=== PATIENT | female | born 1985 | race Hispanic/Latino ===

== ENCOUNTER 2017-01-14 14:19 | Emergency (ER) | payer OTHER ==
[~2017-01-14] VITALS: Ht 157.5 cm; Wt 67.6 kg
--- NOTE | 2017-01-14 14:44 | ED GENERAL ADULT ---
History of Present Illness General Chief Complaint: General Adult Stated Complaint: BLEEDING FROM INCISION SITE S/P Source: patient Exam Limitations: no limitations Vital Signs & Intake/Output Vital Signs & Intake/Output Vital Signs Date Time Temp Pulse Resp B/P B/P Pulse O2 O2 Flow FiO2 Mean Ox Delivery Rate 01/14 1648 96.8 63 16 119/62 98 Room Air 01/14 1555 55 105/62 01/14 1531 Room Air 01/14 1433 96.8 66 18 105/66 98 Room Air Allergies Coded Allergies: No Known Drug Allergies (Intermediate, NONE 01/14/17) Reconcile Medications Docusate Sodium 100 MG CAPSULE 1 CAP PO BID STOOL SOFTNER (Reported) Ferrous Sulfate 325 MG (65 MG IRON) TABLET 1 TAB PO BID POST PARDUM SUPPLEMENT (Reported) Vit Comb.10/Iron/FA (Vitafol-Ob Caplet) 65 MG-1 MG TABLET 1 TAB PO DAILY POST VITAMIN (Reported) Terbinafine HCl 250 MG TABLET 1 TAB PO DAILY VAGINAL YEAST INFECTION ( Reported) Triage Note: C/O HEAVY VAIGNAL BLEEDING WITH CRAMPING SINCE YESTERDAY. S/P C SECTION 2 MONTHS AGO WITH TUBAL LIGATION. ALSO C/O SLIGHT BLEEDING FROM ABODMINAL INCISION. Triage Nurses Notes Reviewed? yes : No Patient currently breastfeeds: No HPI: 31 yo F presenting with incision site pain/drainage, vaginal bleeding. Patient had [address] Grimaldo ([facility]), 2 weeks ago developed pain at lower incision site, lasted for 4 days, evaluated by PMD who considered getting soft tissue ultrasound, but pain resolved and no further evaluation was undertaken, today patient developed mild serosanguineous drainage from lower incision site, thinks she may have irritated the area with the button on her pants. Patient endorses vaginal bleeding since yesterday, dark maroon blood without clots, states that she is due for her menstrual period and this is the first since her , going through a pad every 1-2 hours. Associated mild intermittent crampy lower abdominal pain, absent currently. Denies chest pain, shortness of breath, lightheadedness, syncope. (TABITHA ALARCON,KEVIN) Past History Travel History Traveled to [place] past 21 day No Medical History Any Pertinent Medical History? none Neurological: NONE EENT: NONE Cardiovascular: NONE Respiratory: NONE Gastrointestinal: NONE Hepatic: NONE Renal: NONE Musculoskeletal: NONE Psychiatric: NONE Endocrine: NONE Surgical History Surgical History: none Psychosocial History What is your primary language Malagasy Tobacco Use: Never used ETOH Use: denies use Family History Hx Contributory? No (KEVIN LU MD) Review of Systems Review of Systems Constitutional: Reports: no symptoms. EENTM: Reports: no symptoms. Respiratory: Reports: no symptoms. Cardiovascular: Reports: no symptoms. GI: Reports: no symptoms. Genitourinary: Reports: see HPI. Musculoskeletal: Reports: no symptoms. Skin: Reports: see HPI. Neurological/Psychological: Reports: no symptoms. Hematologic/Endocrine: Reports: no symptoms. Immunologic/Allergic: Reports: no symptoms. All Other Systems: Reviewed and Negative (KEVIN LU MD) Physical Exam Physical Exam General Appearance: well developed/nourished, no apparent distress, alert, awake Head: atraumatic Eyes: Bilateral: normal appearance. Ears, Nose, Throat: normal pharynx Neck: normal inspection, full range of motion Respiratory: normal breath sounds, no respiratory distress, lungs clear Cardiovascular: regular rate/rhythm, normal peripheral pulses Gastrointestinal: normal bowel sounds, soft, non-tender Neurologic/Psych: no motor/sensory deficits, awake, alert, oriented x 3 Comments: Skin: Midline lower abdominal surgical scar, well healed, small 1-2 mm defect to lower scar, Some serosanguinous drainage expressed, non-erythematous, no induration, non-TTP, no purulent drainage Abdomen: Soft, Non-TTP throughout : Minimally dilated cervical os with drainage of maroon blood Core Measures ACS in differential dx? No CVA/TIA Diagnosis: No Severe Sepsis Present: No Septic Shock Present: No (KEVIN LU MD) Progress Differential Diagnoses I considered the following diagnoses in my evaluation of the patient: [Surgical site infection, surgical site seroma, menstruation, less likely competitions from ] Plan of Care: Orders Procedure Date/time Status CBC WITHOUT DIFFERENTIAL 01/14 1445 Complete BASIC METABOLIC PANEL 01/14 1445 Complete URINE 01/14 1444 Complete URINALYSIS 01/14 1444 Complete Laboratory Tests 01/14/17 1520: Anion Gap 10, Estimated GFR > 60, BUN/Creatinine Ratio 15.0, Glucose 84, Calcium 9.7, CBC w Diff NO MAN DIFF REQ, RBC 4.38, MCV 88.3, MCH 29.5, RDW 13.4, MPV 9.4 , Gran % 73.4, Lymphocytes % 18.3 L, Monocytes % 6.4, Eosinophils % 1.5, Basophils % 0.4, Absolute Granulocytes 3.8, Absolute Lymphocytes 0.9 L, Absolute Monocytes 0.3, Absolute Eosinophils 0.1, Absolute Basophils 0, PUBS MCHC 33.4, Urine Color YEL, Urine Clarity CLDY H, Urine pH 6.0, Ur Specific [place] 1.025, Urine Protein TRACE H, Urine Ketones TRACE H, Urine Nitrite NEG , Urine Bilirubin NEG, Urine Urobilinogen 0.2, Ur Leukocyte Esterase NEG, Ur Microscopic SEDIMENT EXAMINED, Urine RBC >75 H, Ur Epithelial Cells RARE, Urine Mucus RARE, Urine Hemoglobin LARGE H, Urine Glucose NEG, Urine Test NEGATIVE Physician MDM: 31 yo F presenting with incision site pain/drainage, vaginal bleeding. VSS, normal HR and BP, remainder of exam as above. DDx: Surgical site seroma, less likely surgical site infection, menstruation, less likely or competition, overall low concern for hemorrhagic shock or significant blood loss. CBC with normal hemoglobin, no leukocytosis. Bedside ultrasound performed without identified fluid collection at drainage site. Case discussed with physician industrial relations director for , agreed withholding antibiotics at this time, recommended follow-up on Monday for further evaluation of surgical site. On reexamination patient well-appearing, vital signs stable, results of testing and plan for follow-up discussed with patient, discharged with return precautions. (TABITHA ALARCON,KEVIN) Initial ED EKG: none (KEVIN LU MD) Departure Departure Disposition: HOME OR SELF CARE Condition: Stable Clinical Impression Primary Impression: Wound drainage Secondary Impressions: Vaginal bleeding Referrals: GILBERTO MACE (PCP/Family) Additional Instructions: Follow up with your OBGYN on Monday for re-evaluation of wound. Return to the ED for any new, worsening, or concerning symptoms. Departure Forms: Customer Survey General Discharge Information (KEVIN LU MD) PA/DIRECTOR SEARCH MARKETING STRATEGIES Co-Sign Statement Statement: ED Attending supervision documentation- [] I saw and evaluated the patient. I have also reviewed all the pertinent lab results and diagnostic results. I agree with the findings and the plan of care as documented in the PA's/DIRECTOR SEARCH MARKETING STRATEGIES's documentation. [X] I have reviewed the ED Record and agree with the PA's/DIRECTOR SEARCH MARKETING STRATEGIES's documentation. [] Additions or exceptions (if any) to the PAs/DIRECTOR SEARCH MARKETING STRATEGIES's note and plan are summarized below: [] (AMRITA ALARCON,ALYSE) Critical Care Note Critical Care Note Critical Care Time: non-applicable (TABITHA ALARCON,KEVIN)
[2017-01-14 15:42] LABS: ABSOLUTE BASOPHIL COUNT 0 /CUMM (0.0-0.2); ABSOLUTE EOSINOPHIL COUNT 0.1 /CUMM (0.0-0.7); ABSOLUTE GRANULOCYTE CT 3.8 /CUMM (1.4-6.5); ABSOLUTE LYMPH COUNT 0.9 /CUMM (1.2-3.4); ABSOLUTE MONOCYTE COUNT 0.3 /CUMM (0.10-0.60); BASOPHIL % 0.4 % (0.0-2.0); EOSINOPHIL % 1.5 % (0-5); GRANULOCYTE % 73.4 % (42.2-75.2); HEMATOCRIT 38.7 % (37-47); MEAN CORPUSCULAR HGB 29.5 PG (27.0-31.0); MEAN CORPUSCULAR HGB CONC 33.4 G/DL (33.0-37.0); MEAN CORPUSCULAR VOLUME 88.3 FL (81.0-99.0); MEAN PLATELET VOLUME 9.4 FL (7.4-10.4); PLATELET COUNT 254 /CUMM (130-400); RBC DISTRIBUTION WIDTH 13.4 % (11.5-14.5); RED BLOOD CELL CT 4.38 /CUMM (4.20-5.40); WHITE BLOOD CELL COUNT 5.1 /CUMM (4.8-10.8)
[2017-01-14] MEDS ORDERED: VITAFOL-OB CAP1 EACH PO (16:10)
[2017-01-14] MEDS ORDERED: DOCUSATE SODIU100 M3 PO (16:10)
[2017-01-14] MEDS ORDERED: TERBINAFINE HC250 MG PO (16:10)
[2017-01-14] MEDS ORDERED: FERROUS SULFAT325 M3 PO (16:11)
[2017-01-14 16:48] VITALS: BP 119/62
== END 2017-01-14 16:51 ==
LOC: ERH 14:19
PROVIDERS: Student in an Organized Health Care Education/Training Program
DX: L76.32 Postprocedural hematoma of skin and subcutaneous tissue following other procedure (principal); N93.9 Abnormal uterine and vaginal bleeding, unspecified
CPT/HCPCS: 81001; 81025

== ENCOUNTER 2017-06-20 09:56 | Emergency (ER) | payer OTHER ==
[~2017-06-20] VITALS: Ht 157.5 cm; Wt 62.1 kg
[~2017-06-20 09:56] MED LIST: DOCUSATE SODIU100 M3 PO; FERROUS SULFAT325 M3 PO; TERBINAFINE HC250 MG PO; VITAFOL-OB CAP1 EACH PO
--- NOTE | 2017-06-20 11:40 | ED GI/GU/ABDOMINAL COMPLAINT ---
History of Present Illness General Chief Complaint: Abdominal Pain/Flank Pain Stated Complaint: ABD PAIN Source: patient Exam Limitations: no limitations Vital Signs & Intake/Output Vital Signs & Intake/Output Vital Signs Date Time Temp Pulse Resp B/P B/P Pulse O2 O2 Flow FiO2 Mean Ox Delivery Rate 06/20 1240 98.9 59 18 97/55 100 Room Air 06/20 1006 97.6 84 20 128/90 100 Room Air Allergies Coded Allergies: No Known Drug Allergies (Intermediate, NONE 01/14/17) Reconcile Medications Ibuprofen 800 MG TABLET 1 TAB PO TID pain Oxycodone HCl/Acetaminophen (Percocet 5-325 MG Tablet) 5 MG-325 MG TABLET 1-2 TAB PO Q6P PRN pain Triage Note: PT TO ED C/O RLQ PAIN SINCE WAKING THIS AM. COMES AND GOES. C/O NAUSEA, DENIES V/D. DENIES S/S. Triage Nurses Notes Reviewed? yes ? N Is pt currently ? No Onset: Abrupt Duration: day(s): (1), constant, continues in ED Timing: recent history Location: right lower quadrant Radiation: no radiation Activities at Onset: none Prior Abdominal Problems: none No Modifying Factors: none HPI: 32-year-old female comes into emergency room for further evaluation of right lower abdominal pain has been going on for the past day. Decreased appetite. Some associated nausea. Denies any vomiting. Denies any increased frequency with urination or burning with urination. Denies any changes in bowel movement. 2 prior C-sections. Denies any other abdominal surgeries. She comes in for further evaluation. Pain is intermittent. (Myron Mann) Past History Travel History Traveled to [place] past 21 day No Medical History Any Pertinent Medical History? see below for history Neurological: NONE EENT: NONE Cardiovascular: NONE Respiratory: NONE Gastrointestinal: NONE Hepatic: NONE Renal: NONE Musculoskeletal: NONE Psychiatric: NONE Endocrine: NONE Surgical History Surgical History: Psychosocial History What is your primary language Latvian Tobacco Use: Never used ETOH Use: denies use Illicit Drug Use: denies illicit drug use Family History Hx Contributory? No (Myron Mann) Review of Systems Review of Systems Constitutional: Reports: no symptoms. EENTM: Reports: no symptoms. Respiratory: Reports: no symptoms. Cardiovascular: Reports: no symptoms. GI: Reports: see HPI. Genitourinary: Reports: no symptoms. Musculoskeletal: Reports: no symptoms. Skin: Reports: no symptoms. Neurological/Psychological: Reports: no symptoms. Hematologic/Endocrine: Reports: no symptoms. Immunologic/Allergic: Reports: no symptoms. All Other Systems: Reviewed and Negative (Myron Mann) Physical Exam Physical Exam General Appearance: well developed/nourished, alert, awake Head: atraumatic, normal appearance Eyes: Bilateral: normal appearance, EOMI. Ears, Nose, Throat, Mouth: hearing grossly normal, moist mucous membrane Neck: normal inspection, full range of motion Respiratory: normal breath sounds, no respiratory distress Cardiovascular: regular rate/rhythm Gastrointestinal: soft, tenderness (TEND OVER MCBURNEYS POINT), NO GUARDING, NO REBOUND TENDERNESS Back: normal inspection Extremities: normal range of motion Neurologic/Psych: awake, alert, oriented x 3, normal gait Skin: intact, normal color Core Measures ACS in differential dx? No Sepsis Present: No Sepsis Focused Exam Completed? No (Myron Mann) Progress Differential Diagnosis: appendicitis, biliary colic, diverticulitis, ectopic , gastritis, inflamm bowel dis, intrauterine , ovarian cyst, ovarian torsion, pancreatitis, PID/cervicitis, peptic ulcer, perforated viscous, UTI/pyelo Plan of Care: Orders Procedure Date/time Status LIPASE 06/20 1139 Complete COMPREHENSIVE METABOLIC PANEL 06/20 1139 Complete CBC WITHOUT DIFFERENTIAL 06/20 1139 Complete URINE 06/20 1009 Complete URINALYSIS 06/20 1009 Complete Laboratory Tests 06/20/17 1158: Anion Gap 8, Estimated GFR > 60, BUN/Creatinine Ratio 23.3, Glucose 93, Calcium 9.3, Total Bilirubin 0.4, AST 20, ALT 30, Alkaline Phosphatase 54, Total Protein 6.9, Albumin 3.8, Globulin 3.1, Albumin/Globulin Ratio 1.2, Lipase 59, CBC w Diff NO MAN DIFF REQ, RBC 4.22, MCV 88.2, MCH 30.4, RDW 13.0, MPV 9.5, Gran % 76.6 H, Lymphocytes % 13.9 L, Monocytes % 8.0, Eosinophils % 1.5, Basophils % 0, Absolute Granulocytes 5.2, Absolute Lymphocytes 0.9 L, Absolute Monocytes 0.5, Absolute Eosinophils 0.1, Absolute Basophils 0, PUBS MCHC 34.5 06/20/17 1050: Urine Color YEL, Urine Clarity CLEAR, Urine pH 6.0, Ur Specific [place] >= 1.030 , Urine Protein NEG, Urine Ketones NEG, Urine Nitrite NEG, Urine Bilirubin NEG, Urine Urobilinogen 0.2, Ur Leukocyte Esterase NEG, Ur Microscopic EXAM NOT REQUIRED, Urine Hemoglobin NEG, Urine Glucose NEG, Urine Test NEGATIVE Diagnostic Imaging: Viewed by Me: CT Scan. Discussed w/RAD: CT Scan. Radiology Impression: PATIENT: JACINTO COLON PRESENT AGE: 32 PATIENT ACCOUNT NO: [id number] : 86 LOCATION: [facility] ORDERING PHYSICIAN: Myron ANAND SERVICE DATE: 06/20/17 EXAM TYPE : CAT - CT ABD & PELVIS W IV CONTRAST EXAMINATION: CT ABDOMEN AND PELVIS WITH CONTRAST CLINICAL INFORMATION: Right lower quadrant pain. COMPARISON: None TECHNIQUE: Multidetector volumetric imaging was performed of the abdomen and pelvis following IV administration of 95 mL of Optiray 320 intravenous contrast. Sagittal and coronal reformatted images were obtained on the technologist's workstation. DLP: 243 mGy-cm FINDINGS: LUNG BASES: The visualized lung bases are unremarkable. LIVER, GALLBLADDER, AND BILIARY TREE: The liver is normal in size, shape, and attenuation. No focal hepatic lesion or biliary ductal dilatation is present. The gallbladder is unremarkable with no evidence of radiopaque gallstones, gallbladder wall thickening, or obvious pericholecystic inflammatory changes. PANCREAS: Unremarkable. SPLEEN: Unremarkable. ADRENAL GLANDS: Unremarkable. KIDNEYS AND URETERS: The kidneys are normal in size, shape, and attenuation. No hydronephrosis, hydroureter, or calculi seen. No perinephric stranding. BLADDER: Unremarkable. GASTROINTESTINAL TRACT: The stomach and small bowel are unremarkable. No dilated loops of bowel or evidence of obstruction. No colonic wall thickening or inflammatory changes. Normal appendix. No free air or free fluid. ABDOMINAL WALL: No significant hernia is appreciated. LYMPH NODES: Normal. VASCULAR: Unremarkable. PELVIC VISCERA: The uterine parenchyma is mildly heterogeneous which could represent small fibroids. There is fullness in the right adnexa with peripherally enhancing right ovarian structures which may represent hemorrhagic cysts. OSSEOUS STRUCTURES: No acute or suspicious osseous abnormality. IMPRESSION: Fullness in the right adnexa with peripherally enhancing structure suggestive of hemorrhagic cyst. Normal appendix. DICTATED BY : Ismael Manley MD DATE/TIME DICTATED:06/20/171412 LENS GRINDER APPRENTICE: CATARINO DATE/TIME TRANSCRIBED:06/20/171412 CONFIDENTIAL, DO NOT COPY WITHOUT APPROPRIATE AUTHORIZATION. <Electronically signed in Other Vendor System> SIGNED BY: Ismael Manley MD 06/20/171417 Initial ED EKG: none (Freddy ANAND,Myron) Departure Departure Disposition: HOME OR SELF CARE Condition: Stable Clinical Impression Primary Impression: Hemorrhagic cyst of right ovary Referrals: Mellisa Perry APRN (PCP/Family) Additional Instructions: Take Percocet and ibuprofen as prescribed. Follow-up with your lens dotter for repeat ultrasound. Return if any increased pain, vomiting, dizziness, syncopal episodes, or any other concerns. Please go over all results of today's visit with your primary care doctor. Contact your primary care doctor to let them know you were here in the emergency room. There may be nonspecific findings which may not be related to your visit today here in the emergency room but may require further evaluation and chronic monitoring by your primary care doctor. If you had a laceration today the chance of foreign body always remains. You should follow-up with your primary care doctor for recheck in 3-5 days for a wound check. If you had an x-ray done there is a chance that a fracture could have been missed on initial read and you should follow-up with your primary care doctor for repeat x-rays if symptoms persist. If your blood pressure was elevated here in the emergency room please have rechecked by [facility] primary care doctor within the next 48. If you were prescribed a narcotic here in the emergency room or any type of controlled substances you're not allowed to drive while taking this medication or operate any type of heavy machinery. Narcotics can make you feel lightheaded dizziness nausea and can cause constipation. You may need to cherry picker operator a stool softener. Thank you for choosing [facility] emergency room. Please return to the emergency room immediately if you have any other concerns worsening of symptoms. Departure Forms: Customer Survey General Discharge Information Prescriptions: Current Visit Scripts Oxycodone HCl/Acetaminophen (Percocet 5-325 MG Tablet) 1-2 TAB PO Q6P PRN pain #10 TAB Ibuprofen 1 TAB PO TID #30 TAB Comments 06/20/2017 2:51:42 PM Patient clinically looks well. She has no acute abdomen on exam. She is hemodynamically stable. At this time I do not feel that the patient requires inpatient management. No suspicion for ovarian torsion. No signs of torsion on the CT scan. Patient can follow-up with lens dotter. Return if any other concerns. (Myron Mann) PA/SECURITY ALARM TECHNICIAN Co-Sign Statement Statement: ED Attending supervision documentation- I saw and evaluated the patient. I have also reviewed all the pertinent lab results and diagnostic results. I agree with the findings and the plan of care as documented in the PA's/SECURITY ALARM TECHNICIAN's documentation. x I have reviewed the ED Record and agree with the PA's/SECURITY ALARM TECHNICIAN's documentation. [] Additions or exceptions (if any) to the PAs/SECURITY ALARM TECHNICIAN's note and plan are summarized below: [] (Jass ALARCON,Bridger)
[2017-06-20 12:07] LABS: ABSOLUTE BASOPHIL COUNT 0 /CUMM (0.0-0.2); ABSOLUTE EOSINOPHIL COUNT 0.1 /CUMM (0.0-0.7); ABSOLUTE GRANULOCYTE CT 5.2 /CUMM (1.4-6.5); ABSOLUTE LYMPH COUNT 0.9 /CUMM (1.2-3.4); ABSOLUTE MONOCYTE COUNT 0.5 /CUMM (0.10-0.60); BASOPHIL % 0 % (0.0-2.0); EOSINOPHIL % 1.5 % (0-5); GRANULOCYTE % 76.6 % (42.2-75.2); HEMATOCRIT 37.2 % (37-47); MEAN CORPUSCULAR HGB 30.4 PG (27.0-31.0); MEAN CORPUSCULAR HGB CONC 34.5 G/DL (33.0-37.0); MEAN CORPUSCULAR VOLUME 88.2 FL (81.0-99.0); MEAN PLATELET VOLUME 9.5 FL (7.4-10.4); PLATELET COUNT 209 /CUMM (130-400); RED BLOOD CELL CT 4.22 /CUMM (4.20-5.40); WHITE BLOOD CELL COUNT 6.7 /CUMM (4.8-10.8)
--- NOTE | 2017-06-20 14:18 | CT SCAN REPORT ---
EXAMINATION: CT ABDOMEN AND PELVIS WITH CONTRAST CLINICAL INFORMATION: Right lower quadrant pain. COMPARISON: None TECHNIQUE: Multidetector volumetric imaging was performed of the abdomen and pelvis following IV administration of 95 mL of Optiray 320 intravenous contrast. Sagittal and coronal reformatted images were obtained on the technologist's workstation. DLP: 243 mGy-cm FINDINGS: LUNG BASES: The visualized lung bases are unremarkable. LIVER, GALLBLADDER, AND BILIARY TREE: The liver is normal in size, shape, and attenuation. No focal hepatic lesion or biliary ductal dilatation is present. The gallbladder is unremarkable with no evidence of radiopaque gallstones, gallbladder wall thickening, or obvious pericholecystic inflammatory changes. PANCREAS: Unremarkable. SPLEEN: Unremarkable. ADRENAL GLANDS: Unremarkable. KIDNEYS AND URETERS: The kidneys are normal in size, shape, and attenuation. No hydronephrosis, hydroureter, or calculi seen. No perinephric stranding. BLADDER: Unremarkable. GASTROINTESTINAL TRACT: The stomach and small bowel are unremarkable. No dilated loops of bowel or evidence of obstruction. No colonic wall thickening or inflammatory changes. Normal appendix. No free air or free fluid. ABDOMINAL WALL: No significant hernia is appreciated. LYMPH NODES: Normal. VASCULAR: Unremarkable. PELVIC VISCERA: The uterine parenchyma is mildly heterogeneous which could represent small fibroids. There is fullness in the right adnexa with peripherally enhancing right ovarian structures which may represent hemorrhagic cysts. OSSEOUS STRUCTURES: No acute or suspicious osseous abnormality. IMPRESSION: Fullness in the right adnexa with peripherally enhancing structure suggestive of hemorrhagic cyst. Normal appendix.
[2017-06-20] MEDS ORDERED: IBUPROFEN800 M1 PO (14:44)
[2017-06-20] MEDS ORDERED: PERCOCET 5-3251 EACH PO (14:44)
[2017-06-20 15:00] VITALS: BP 103/57
== END 2017-06-20 15:04 ==
LOC: ERH 09:56
PROVIDERS: Physician Assistant Medical
DX: N83.201 Unspecified ovarian cyst, right side (principal)
CPT/HCPCS: 74177; 81001; 81003; 81025; 96374; J1885